=== PATIENT | male | born 1985 | race Caucasian/White ===

== ENCOUNTER 2021-06-04 15:50 | Emergency (ER) | payer OTHER ==
[~2021-06-04 15:50] MED LIST: BACTRIM DS TAB1 EACH PO; BACTROBAN NASAL1 GM; IBUPROFEN800 MG PO
== END 2021-06-04 18:30 | disposition home or self-care (01) ==
LOC: ER1 15:50
DX: U07.1 COVID-19 (principal); J06.9 Acute upper respiratory infection, unspecified; Z88.0 Allergy status to penicillin
CPT/HCPCS: 71045; 99283; U0003